=== PATIENT | male | born 1980 | race Caucasian/White ===

== ENCOUNTER 2019-04-19 08:27 | Emergency (ER) | payer SELFPAY ==
[2019-04-19 08:31] VITALS: BP 152/98; PULSE 62; RESP 18; TEMP 36.6; O2SAT 98
--- NOTE | 2019-04-19 08:37 | DI.RAD_ITS ---
SYMPTOM/DIAGNOSIS: FALL, RT RIB PAIN, PNEUMOTHORAX/RIB FX PA AND LATERAL CHEST: There are no prior comparison exams. The lateral view is limited by the patient's arms at his sides. The heart size is normal. The lungs appear clear with the exception of a small area of linear atelectasis or scarring at the right lung base. No pneumothorax, infiltrate or effusions are seen. No rib fracture is identified. IMPRESSION: Negative chest x-ray.
--- NOTE | 2019-04-19 08:39 | W.ED.GENAD ---
Discharge Plan Disposition Patient Disposition: HOME Condition: Good Discharge Details Chief Complaint: Orthopedic Clinical Impression: Sprain of right shoulder Primary Care Provider: Kinjal Allen ED Provider: Rolan Horn Home Meds and New Rx's Prescriptions: New acetaminophen [Mapap Extra Strength] 500 MG tablet 1,000 mg PO Q6H 5 Days Qty: 60 RF: 0 lidocaine [Lidoderm] 1 PATCH patch 1 patch Topical Q24H Qty: 4 RF: 0 ibuprofen [Motrin IB] 200 MG tablet 600 mg PO Q6H 5 Days Qty: 60 RF: 0 Discharge Instructions Instructions: Shoulder Sprain (ED), Rib Contusion (ED) Additional Instructions: Your x-ray shows no evidence of popped lung or rib fractures, however I suspect you have a notable contusion to your ribs causing the pain. Please use the Lidoderm patch, the maximum dose Tylenol and Motrin as well as ice for control of your pain. I also suspect that you have mild to moderate rotator cuff injury. Please use the sling, but continue to move your arm in all directions multiple times throughout the day with the assistance of someone else to prevent frozen shoulder syndrome. He will be contacted by naval architect specialist for your appointment and further assessment. If you notice any worsening of your symptoms, or any new symptoms such as vomiting, diarrhea, fever, chills, shortness of breath, chest pain, numbness, weakness, or fainting , please return immediately to the emergency department for reevaluation. Please follow up with your primary care provider as soon as possible for reassessment and reevaluation. As always, it was a pleasure participating in your medical care today. Referrals: Rosa Sanon MD [ [facility] STAFF PHYSICIAN] - Medical Decision Making This is a pleasant 38-year-old male who presents today for evaluation of right shoulder and rib pain. The patient was mountain biking yesterday when he fell and landed on his right shoulder and right chest. [place] that he heard a pop at that time, has notable pain in both his ribs and his right shoulder. Both worse with movement and breathing. He denies any associated numbness or tingling. No focal weakness. No cough. He did have 1 or 2 episodes of near syncope which he states is secondary to the pain. Physical exam demonstrates reproducible right-sided rib tenderness as well as shoulder tenderness with movement. And normal neurologic exam, no signs of significant trauma to the head. He was wearing a helmet. Signs and symptoms are notably concerning for rotator cuff injury, as well as potential occult fracture. And concern for rib fracture as well. Bedside ultrasound shows lung sliding. We will get an x-ray for further evaluation of significant pneumothorax or rib fractures. We will treat the patient's pain. Because of his episodes of near syncope and EKG was ordered, no significant abnormalities. No concerning findings on EKG. I suspect his symptoms are secondary to a vasovagal event from the pain. 9:31 AM Chest x-ray is negative for acute process, right shoulder x-rays negative for acute process or fracture per radiology Dr. Zurita. I did contact Dr. Zurita and discussed the atypical linear nirmal on the patient's right lower lung, she feels this is attributable to scar, I did discuss this with the patient, and he states that he did have an issue in the past with a scar in his lower lung ellington. Per Dr. Zurita there is no evidence of pneumothorax. Patient's laboratory work-up is returned benign, no significant abnormalities. I did discuss further CT imaging and anesthetic rib block, however at this time the patient would like to hold off in any additional imaging, and feels content with the Tylenol Motrin and Lidoderm patch. He does not want to reply. Patient maintains good oxygen saturations, no signs of severe acute distress, with no evidence of significant fracture, pneumothorax or other abnormality feel that no other further imaging is currently warranted, additionally the patient does not want any further imaging at this time. We discussed the risks and benefits of this and the patient understands. We will place place the patient in a right arm sling, and give orthopedic referral for right shoulder injury, suspicion for rotator cuff injury. Patient will be discharged home with close follow-up with his PCP. We discussed red flags which to return. He is right-hand dominant. I have extensively reviewed the treatment plan and discharge instructions with the patient. I have addressed all patient concerns at this time. The patient was made aware of what symptoms to monitor for that would warrant a return to the emergency department. Discussed the plan with the patient, they demonstrate verbal understanding and agreement with our assessment and plan at this time. EKG 8: 43 Rate 66, intervals normal, sinus rhythm, no significant ST elevations or depressions. Normal nonspecific J-point elevation in the anterior lateral leads. Inconsistent with STEMI, instead it is consistent with normal physiologic J-point's. No significant Q waves. PA AND LATERAL CHEST: There are no prior comparison exams. The lateral view is limited by the patient's arms at his sides. The heart size is normal. The lungs appear clear with the exception of a small area of linear atelectasis or scarring at the right lung base. No pneumothorax, infiltrate or effusions are seen. No rib fracture is identified. IMPRESSION: Negative chest x-ray. Ordered By: Rolan Horn DO RIGHT SHOULDER: No fracture or dislocation is seen. The visualized right ribs appear intact. No pneumothorax is seen. IMPRESSION: Negative right shoulder. Ordered By: Rolan Horn DO CC: HPI General Date/Time Provider Initiated Documentation: 04/19/19 08:27. HPI Narrative: This is a 38-year-old male with a past medical history of hypertension, who presents today for evaluation of right-sided rib and shoulder pain. Patient states that he was mountain biking yesterday, went off a jump, fell landed on his right shoulder. This occurred last night, and since then he has had mild to moderate pain in his right shoulder and right ribs. Worse with movement of the right shoulder and with deep breathing. Pain is improved by nothing. This morning when he did get up he felt notably lightheaded, and felt like he was going to pass out secondary to the pain. He denies any headache or neck pain, he denies any abdominal pain, arm pain or leg pain. He does have some abrasions on his right flank, but denies any other trauma or lacerations. Patient takes no blood thinners. He denies any numbness tingling or weakness. He denies any cough, fever, chills. He has no previous surgeries to his shoulder chest. He denies any current tobacco use. No other modifying factors. No other complaints at this time. Related Data Home Medications Medication Instructions Recorded Confirmed acetaminophen [Mapap Extra 1,000 mg PO Q6H 5 Days #60 tab 04/19/19 Strength] ibuprofen [Motrin Ib] 600 mg PO Q6H 5 Days #60 tab 04/19/19 lidocaine [Lidoderm] 1 patch TOPICAL Q24H #4 patch 04/19/19 Previous Rx's Medication Instructions Recorded acetaminophen [Mapap Extra 1,000 mg PO Q6H 5 Days #60 tab 04/19/19 Strength] ibuprofen [Motrin Ib] 600 mg PO Q6H 5 Days #60 tab 04/19/19 lidocaine [Lidoderm] 1 patch TOPICAL Q24H #4 patch 04/19/19 Allergies Allergy/AdvReac Type Severity Reaction Status Date / Time No Known Allergies Allergy Unverified 04/19/19 08:35 General Stated Complaint: Orthopedic MARIKA: 3 Review of Systems Review of Systems All systems reviewed & are unremarkable except as noted in HPI and below PFSH Social History Drug use: Never Substance use type: does not use Do you feel safe at home: Yes Do you feel safe in your relationship?: Yes Exam Narrative Exam Narrative: 1.Const: Well-nourished, Well-developed, appearing stated age 2.Eyes: PERRL, no conjunctival injection, and symmetrical lids. 3.ENT: Atraumatic external nose and ears. Moist MM. Neck: Symmetric, trachea midline, No thyromegaly. Patient demonstrates intact dentition with no signs of tooth avulsion or fracture, no signs of jaw deformity, no evidence of a LeFort's fracture, with an intact palate, nose and orbital region. There is no evidence of a nasal septal hematoma. No proptosis. Jaw closes symmetrically. Airway is clear. There is no evidence of raccoon eyes, hansen sign, CSF rhinorrhea, mastoid tenderness, cranial crepitus, hemotympanum, exophthalmos, or hyphema. 4.CVS: Regular rate and rhythm, Normal s1 and s2. No murmurs, carotid bruits, rubs, or gallops. Radial pulses 2+ bilaterally and symmetric. Dorsalis pedis pulses 2+ bilaterally and symmetric. 2+ capillary refill. No evidence of distant heart sounds. No extremity edema. No evidence of gross hemorrhage. 5.RESP: Airway clear, no obstructions. No abrasions or ecchymosis. Chest movement symmetric with respirations. Notable chest wall tenderness to the right lateral chest over ribs 7 8 and 9. Trachea midline. No crepitus. No step offs. No paradoxical movements. Lungs are clear to auscultation bilaterally however sounds are mildly diminished on the right. No rales, rhonchi, wheezing or stridor.No Sucking chest wounds. No clinical evidence of significant chest trauma. 6.GI: Soft, Nontender/Nondistended, No hepatosplenomegaly. No guarding or rebound. No significant abrasions, ecchymosis, or abnormality. 7.MSK: Normocephalic, Extremities w/o deformity. No cyanosis or clubbing, No midline tenderness to palpation over the CTLS spine. Normal ROM in flexion, extension, side bend, and rotation. Patient has +5 out of 5 strength in the lower extremities in dorsiflexion and plantarflexion, knee flexion and extension, hip flexion and extension. There is +2 over 2 dorsalis pedis pulses bilaterally. There is normal sensation to the skin with light touch at the foot, knee, and hip. Normal saddle sensation. Good sensation over the deep sural nerve area bilaterally. Rectal exam deferred. Reflexes are +2 over 4 in the patellar reflex bilaterally. +5 out of 5 strength in the medial, ulnar, radial nerve distribution bilaterally in the hands as well as intact light touch sensation to these dermatomes on the hands Right shoulder: Notable tenderness over the scapular spine. Minimal tenderness over the posterior aspect of the proximal humeral head. Pain was is present with extension of the shoulder, as well as abduction, adduction, internal and external rotation. Pain with both empty can test and thumbs up testing. 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 Normal sensation throughout the upper extremity. Brisk capillary refill, +2 radial pulse bilaterally. 8.Skin: Warm, Dry. Notable well-healing abrasions to the right flank. No laceration. 9.Neuro: circulation librarian II-XII grossly intact. Sensation grossly intact, no focal neurologic deficits. All 6 cardinal planes of vision are fully intact. No evidence of rotatory or vertical nystagmus. The patient demonstrated a normal [id number], good dexterity. There was no evidence of dysdiadochokinesia. Patient was able to ambulate without difficulty. There was no wide-based gait. Romberg, and [id number] are both normal on testing. Sensation was intact bilaterally as well as muscle strength bilaterally for all extremities. Patient was able to verbalize butter cup with no slurring, or miss pronunciation. 10.Psych: (AAO) x3. Appropriate mood and affect Course Vital Signs Temperature 36.6 C 04/19/19 08:31 Pulse 62 04/19/19 08:31 Respiratory Rate 18 04/19/19 08:31 Blood Pressure 152/98 H 04/19/19 08:31 Pulse Oximetry 98 04/19/19 08:31 Temperature 36.6 C 04/19/19 08:31 Temperature Source Tympanic 04/19/19 08:31 Pulse 62 04/19/19 08:31 Respiratory Rate 18 04/19/19 08:31 Blood Pressure 152/98 H 04/19/19 08:31 Blood Pressure Position Supine 04/19/19 08:31 Pulse Oximetry 98 04/19/19 08:31 Oxygen Delivery Method Room Air 04/19/19 08:31 Oxygen Flow Rate 0 04/19/19 08:31 Pain Level 7 04/19/19 08:31
--- NOTE | 2019-04-19 08:40 | DI.RAD_ITS ---
SYMPTOM/DIAGNOSIS: FALL, TRAUMA TO RT SHOULDER RIGHT SHOULDER: No fracture or dislocation is seen. The visualized right ribs appear intact. No pneumothorax is seen. IMPRESSION: Negative right shoulder.
[2019-04-19] MEDS: Ibuprofen 800 MG TAB PO (08:50)
[2019-04-19] MEDS: Acetaminophen 500 MG TAB 1000 MG PO (08:50)
[2019-04-19] MEDS: Normal Saline 1,000 ML 1000 ML IV (09:05)
[2019-04-19 09:26] LABS: Abs Immature Grans 0.02 k/cumm (0.0-0.09); Absolute Basophil Count 0.03 k/cumm (0.0-0.2); Absolute Eosinophil Count 0.13 k/cumm (0.0-0.7); Absolute Lymphocyte Count 1.21 k/cumm (1.2-3.4); Absolute Monocyte Count 0.65 k/cumm (0.11-0.7); Absolute Neutrophil Count 4.83 k/cumm (1.2-6.7); Basophils % 0.4; Eosinophils % 1.9; HCT 44.6 % (40.0-50.0); HGB 15.6 g/dL (13.5-17.5); Immature Grans % 0.3; Lymphocytes % 17.6; Mean Corpuscular Hemoglobin 31.4 pg (27.0-33.0); Mean Corpuscular Volume 89.7 fL (80-95); Mean Platelet Volume 10.3 fL (8.0-11.0); Monocytes % 9.5; Neutrophils % 70.3; Platelet Count 194 x1000/uL (130-400); RBC 4.97 m/cumm (4.50-6.00); RBC Distribution Width 12.2 % (11.8-14.1); White Blood Cell Count 6.87 k/cumm (4.4-10.8)
[2019-04-19 09:47] LABS: ALT 39 U/L (12-78); AST 23 U/L (15-37); Albumin 4.4 g/dL (3.4-5.0); Alkaline Phosphatase 60 U/L (46-116); Anion Gap 7.5 mmol/L (3-11); BUN 13 mg/dL (7-18); Bilirubin, Total 0.9 mg/dL (0.2-1.0); CO2 29.5 mmol/L (21.0-32.0); CREATININE 0.96 mg/dL (0.70-1.30); Calcium 9.5 mg/dL (8.5-10.1); Chloride 104 mmol/L (98-107); Glucose 100 mg/dL (70-100); Sodium 141 mmol/L (136-145); Total Protein 8.2 g/dL (6.4-8.2); Troponin I < 0.05 ng/mL (0.00-0.06)
[2019-04-19] MEDS: Lidocaine 5% Patch 1 PATCH TP (09:50)
[2019-04-19 10:08] VITALS: BP 134/70; PULSE 62; RESP 16; TEMP 36.5; O2SAT 98
== END 2019-04-19 10:00 | disposition home or self-care (01) ==
LOC: ER 10:07
PROVIDERS: Emergency Provider Student in an Organized Health Care Education/Training Program; PCP Family Medicine
DX: S43.401A Unspecified sprain of right shoulder joint, initial encounter (principal); S20.211A Contusion of right front wall of thorax, initial encounter; V18.0XXA Pedal cycle driver injured in noncollision transport accident in nontraffic accident, initial encounter; Y93.55 Activity, bike riding; R55 Syncope and collapse
CPT/HCPCS: 36415; 80053; 93005; 96360; 99285; 71046; 73030; 84484; 85025; 93010; 99284; L3650

== ENCOUNTER 2020-08-14 18:12 | Outpatient (REF) | payer SELFPAY ==
[2020-08-18 03:13] LABS: Patient Race White; SARS-CoV-2 RNA Undetected (Undetected); SARS-CoV-2 Specimen Source Nasal
== END 2020-08-14 18:32 ==
LOC: NCHCN 18:12
PROVIDERS: PCP Family Medicine; Visit Provider Family Medicine
DX: Z20.828 Contact with and (suspected) exposure to other viral communicable diseases (principal)
CPT/HCPCS: U0003

== ENCOUNTER 2021-08-11 09:20 | Outpatient (REF) | payer SELFPAY ==
[2021-08-11 14:23] LABS: HCT 43.1 % (40.0-50.0); HGB 14.8 g/dL (13.5-17.5); MCH 30.7 pg (27.0-33.0); MCHC 34.3 % (32.0-36.0); MCV 89.4 fL (80-95); MPV 10.8 fL (8.0-11.0); Platelet Count 210 10^3/uL (130-400); RBC 4.82 10^6/uL (4.36-5.78); RDW 11.5 % (11.8-14.1); RDW-SD 37.5 fL
[2021-08-11 14:34] LABS: ALT 77 U/L (16-63); AST 30 U/L (15-37); Anion Gap 8.6 mmol/L (3-11); BUN 13 mg/dL (7-18); CO2 29.4 mmol/L (21.0-32.0); CREATININE 0.9 mg/dL (0.70-1.30); Calcium 9.2 mg/dL (8.5-10.1); Calculated LDL 141 mg/dL (<100); Chloride 103 mmol/L (98-107); Cholesterol 210 mg/dL (<200); Glucose 93 mg/dL (74-106); HDL Cholesterol 49 mg/dL (40-60); Potassium 4.8 mmol/L (3.5-5.1); Sodium 141 mmol/L (136-145); Triglyceride 100 mg/dL (<150)
== END 2021-08-11 09:21 | disposition home or self-care (01) ==
LOC: NCHCN 09:20
PROVIDERS: PCP Family Medicine; Visit Provider Nurse Practitioner Family
DX: I10 Essential (primary) hypertension (principal); Z13.220 Encounter for screening for lipoid disorders
CPT/HCPCS: 80048; 80061; 85027; 84450; 84460

== ENCOUNTER 2023-03-17 15:14 | Outpatient (REF) | payer SELFPAY ==
[2023-03-17 14:59] LABS: HCT 42.7 % (40.0-50.0); MCH 31.4 pg (27.0-33.0); MCHC 35.1 % (32.0-36.0); MCV 90 fL (80-95); MPV 10.5 fL (8.0-11.0); Platelet Count 202 10^3/uL (130-400); RBC 4.77 10^6/uL (4.36-5.78); RDW 11.7 % (11.8-14.1); RDW-SD 37.8 fL; WBC 4.54 10^3/uL (4.4-10.8)
[2023-03-17 15:14] LABS: ALT 40 U/L (16-63); AST 21 U/L (15-37); Albumin 4.1 g/dL (3.4-5.0); Alkaline Phosphatase 63 U/L (46-116); BUN 10 mg/dL (7-18); Bilirubin, Total 0.7 mg/dL (0.2-1.0); CREATININE 0.8 mg/dL (0.70-1.30); Calcium 8.9 mg/dL (8.5-10.1); Calculated LDL 117 mg/dL (<100); Chloride 105 mmol/L (98-107); Cholesterol 188 mg/dL (<200); Estimated GFR 114.74 (mL/min/1.73m2); Glucose 93 mg/dL (74-106); HDL Cholesterol 50 mg/dL (40-60); Potassium 4.8 mmol/L (3.5-5.1); Sodium 143 mmol/L (136-145); Total Protein 7.5 g/dL (6.4-8.2); Triglyceride 106 mg/dL (<150)
== END 2023-03-17 15:15 | disposition home or self-care (01) ==
LOC: NCHCN 15:14
PROVIDERS: Nurse Practitioner Family; PCP Family Medicine; Visit Provider Family Medicine
DX: Z00.00 Encounter for general adult medical examination without abnormal findings (principal); E78.5 Hyperlipidemia, unspecified
CPT/HCPCS: 80053; 80061; 85027

== ENCOUNTER 2024-02-16 11:17 | Outpatient (REF) | payer SELFPAY ==
[2024-02-16 14:33] LABS: HCT 46.6 % (40.0-50.0); HGB 16.8 g/dL (13.5-17.5); MCH 31.6 pg (27.0-33.0); MCHC 36.1 % (32.0-36.0); MCV 88 fL (80-95); MPV 10.4 fL (8.0-11.0); Platelet Count 215 10^3/uL (130-400); RBC 5.31 10^6/uL (4.36-5.78); RDW 11.7 % (11.8-14.1); RDW-SD 37.2 fL; WBC 5.03 10^3/uL (4.4-10.8)
[2024-02-16 15:03] LABS: ALT 41 U/L (16-63); AST 18 U/L (15-37); Albumin 4.3 g/dL (3.4-5.0); Alkaline Phosphatase 69 U/L (46-116); BUN 14 mg/dL (7-18); Bilirubin, Total 0.8 mg/dL (0.2-1.0); Calcium 8.9 mg/dL (8.5-10.1); Chloride 105 mmol/L (98-107); Estimated GFR 96.97 (mL/min/1.73m2); Glucose 113 mg/dL (74-106); Potassium 4.2 mmol/L (3.5-5.1); Sodium 141 mmol/L (136-145); Total Protein 7.5 g/dL (6.4-8.2)
== END 2024-02-16 11:18 | disposition home or self-care (01) ==
LOC: NCHCN 11:17
PROVIDERS: PCP Family Medicine; Visit Provider Nurse Practitioner Family
DX: I48.91 Unspecified atrial fibrillation (principal)
CPT/HCPCS: 80053; 85027; 84443

== ENCOUNTER 2024-04-08 09:12 | Outpatient (CLI) | payer SELFPAY ==
--- NOTE | 2024-04-08 09:17 | W.CARDEVENT ---
Date of service: 04/08/24 Time of Service: 09:17 Cardiac Event Recorder Referring Provider:: Julieta Forbes Indications:: Paroxysmal atrial fibrillation Cardiac Event Note: This is a cardiac event monitor. Patient was monitored for 7 days and 23 hours Predominant rhythm was sinus with an average heart rate of 64. Minimum was 31, maximum 111 There were rare isolated atrial and ventricular ectopic beats. There was an atrial fibrillation burden of approximately 10%, generally rapid rates, maximum was 199. Patient symptoms were reported which had no correlation to any dysrhythmia
== END 2024-04-08 09:13 | disposition home or self-care (01) ==
LOC: CARDOPNVT 09:12
PROVIDERS: PCP Family Medicine; Visit Provider Internal Medicine Cardiovascular Disease
DX: I48.0 Paroxysmal atrial fibrillation (principal)
CPT/HCPCS: 93246

== ENCOUNTER 2024-04-11 11:04 | Outpatient (CLI) | payer SELFPAY ==
--- NOTE | 2024-04-11 11:00 | RT.EKG_ITS ---
APPROVED REPORT Exam: Resting ECG Reason for Exam: baseline Patient Location: O HR:49 bpm ECG Measurements Heart Rate 49 AXIS MT 178 P 50 QRSd 86 QRS 18 QT 407 T 27 QTc 368 Conclusion Sinus bradycardia...rate< 50 Normal Electrocardiogram
== END 2024-04-11 11:05 | disposition home or self-care (01) ==
LOC: DI.CARD 11:05
PROVIDERS: PCP Family Medicine; Visit Provider Internal Medicine Cardiovascular Disease
DX: I48.0 Paroxysmal atrial fibrillation (principal); R00.1 Bradycardia, unspecified
CPT/HCPCS: 93010

== ENCOUNTER 2024-08-28 08:09 | Outpatient (CLI) | payer SELFPAY ==
--- NOTE | 2024-08-28 08:00 | RT.EKG_ITS ---
APPROVED REPORT Exam: Resting ECG Reason for Exam: afib Patient Location: O HR:60 bpm ECG Measurements Heart Rate 60 AXIS NC 175 P 71 QRSd 82 QRS 17 QT 383 T 32 QTc 383 Conclusion Sinus rhythm...normal P axis, V-rate 50- 99 Left atrial enlargement...P, P'>60mS, <-0.15mV V1 Otherwise normal ECG
== END 2024-08-28 08:10 | disposition home or self-care (01) ==
LOC: DI.CARD 08:09
PROVIDERS: PCP Family Medicine; Visit Provider Internal Medicine Cardiovascular Disease
DX: I48.0 Paroxysmal atrial fibrillation (principal)
CPT/HCPCS: 93010